=== PATIENT | female | born 1990 | race Caucasian/White ===

== ENCOUNTER 2019-03-31 15:22 | Emergency (ER) | payer SELFPAY ==
[2019-03-31] MEDS ORDERED: predniSONE 20 MG TAB ONE (16:03)
== END 2019-03-31 16:02 | disposition home or self-care (01) ==
LOC: MADERS 15:22
DX: G51.0 Bell's palsy (principal); Z71.6 Tobacco abuse counseling; F17.210 Nicotine dependence, cigarettes, uncomplicated
CPT/HCPCS: 99406; J7512

== ENCOUNTER 2019-04-01 22:42 | Emergency (ER) | payer SELFPAY ==
--- NOTE | 2019-04-01 23:21 | CT ---
CT BRAIN NONCONTRAST: DATE: 04/01/2019 HISTORY: 29-year-old female with acute left facial palsy FINDINGS: There is no evidence of acute intra-axial or extra-axial hemorrhage. There is no midline shift or any other mass effect. There is no extra-axial fluid collection. The ventricles are normal in size and configuration. The tympanomastoid cavities, and the upper portions of the paranasal sinuses included in these images, are grossly clear. Calvarium is intact. IMPRESSION: Normal.
== END 2019-04-01 23:50 | disposition home or self-care (01) ==
LOC: MADERS 22:42
DX: G51.0 Bell's palsy (principal); F17.210 Nicotine dependence, cigarettes, uncomplicated; Z79.899 Other long term (current) drug therapy
CPT/HCPCS: 70450